=== PATIENT | female | born 1945 | race Caucasian/White ===

== ENCOUNTER 2024-12-25 19:20 | Inpatient (IN) | payer MEDICARE, OTHER ==
[~2024-12-25] VITALS: Ht 170.2 cm; Wt 81.6 kg
[2024-12-25] MEDS ORDERED: SEMA14TA PO (19:43)
[2024-12-25] MEDS ORDERED: CINA30TA6 PO (19:43)
[2024-12-25] MEDS ORDERED: METF-495 PO (19:43)
[2024-12-25] MEDS ORDERED: GABA-532 PO (19:43)
[2024-12-25] MEDS ORDERED: BENA40TA8 PO (19:43)
[2024-12-25] MEDS ORDERED: ATOR20TA PO (19:43)
[2024-12-25] MEDS ORDERED: GLIP10TA11 PO (19:43)
[2024-12-25] MEDS ORDERED: TRAZ-182 PO (19:43)
[2024-12-25] MEDS ORDERED: POTA-88 PO (19:43)
[2024-12-25] MEDS ORDERED: ONDA4TAB11 PO (19:43)
[2024-12-25] MEDS ORDERED: LORAZEPAM 2 MG/1 ML VIAL ONE (20:08)
[2024-12-25] MEDS: LORAZEPAM 2 MG/1 ML VIAL IV ONE (20:12)
[2024-12-25] MEDS ORDERED: INSULIN REGULAR, HUMAN 1000 UNIT/10 ML VIAL ONE (20:13)
[2024-12-25 20:15] LABS: BASOPHILS % (AUTO) 0.1 % (0.0-2.0); DIFFERENTIAL COMMENT 0; EOSINOPHILS % (AUTO) 0.1 % (0.0-7.0); HEMATOCRIT 31.8 % (31.2-41.9); LYMPHOCYTES # (AUTO) 0.8 K/uL (0.8-4.8); LYMPHOCYTES % (AUTO) 5.2 % (20.5-51.5); MEAN CORPUSCULAR HEMOGLOBIN 25.3 uug (24.7-32.8); MEAN CORPUSCULAR HGB CONC 32 g/dL (32.3-35.6); MEAN CORPUSCULAR VOLUME 80.3 fL (75.5-95.3); MONOCYTES # (AUTO) 0.9 K/uL (0.1-1.30); MONOCYTES % (AUTO) 5.4 % (0.0-11.0); NEUTROPHILS # (AUTO) 14.3 K/uL (1.8-8.9); NEUTROPHILS % (AUTO) 89.2 % (38.5-71.5); PLATELET COUNT (AUTO) 412 K/uL (179-408); RED BLOOD CELL COUNT(AUTO) 3.96 MIL/uL (3.63-4.92); RED CELL DISTRIBUTION WIDTH 15.5 % (12.3-17.7)
[2024-12-25 20:31] LABS: CALCIUM 10.5 mg/dL (8.5-10.1); CARBON DIOXIDE 20 mmol/L (21-32); CHLORIDE 97 mmol/L (98-107); CREATININE 1.3 mg/dL (0.6-1.3); POTASSIUM 4.5 mmol/L (3.5-5.1); SODIUM SERUM 133 mmol/L (136-145); UREA NITROGEN, BLOOD 55 mg/dL (7-18)
[2024-12-25 20:34] LABS: GLUCOSE 597 mg/dL (74-106)
[2024-12-25] MEDS: IV NS 1000 ML 1,000 ML IV ONE ×2 (20:38→21:08)
[2024-12-25] MEDS: INSULIN REGULAR, HUMAN 1000 UNIT/10 ML VIAL IV ONE ×2 (20:38→22:10)
[2024-12-25 20:45] LABS: ALANINE AMINOTRANSFERASE 16 U/L (14-59); ALBUMIN 2.1 g/dL (3.4-5.0); ALKALINE PHOSPHATASE 134 U/L (50-136); ASPARTATE AMINOTRANSFERASE 8 U/L (15-37); BILIRUBIN,TOTAL 0.8 mg/dL (0.2-1.0); NT-PRO BNP 814 pg/mL (0-125); TOTAL PROTEIN, SERUM 6.5 g/dL (6.4-8.2)
[2024-12-25 20:58] LABS: ACETONE, SERUM SMALL (NEGATIVE)
[2024-12-25 21:13] LABS: ABG BASE EXCESS -4.5 mmol/L (-2.0-3.0); ABG PCO2 34.6 mmHg (32.0-45.0); ABG PO2 78.6 mmHg (83.0-108.0); ABG SITE RIGHT RADIAL; ABG TOTAL HEMOGLOBIN 10.1 G/dL (12.0-16.0); AaDO2 95.5 mmHg; COHb 0.1 % (0.5-1.5); MetHb 0.2 % (0.0-1.5)
[2024-12-25 21:28] LABS: *BILIRUBIN,URIN NEGATIVE (NEGATIVE); *BLOOD, URINE 1+ (NEGATIVE); *CLARITY,URINE CLEAR (CLEAR); *COLOR,URINE YELLOW (YELLOW); *KETONES,URINE 2+ (NEGATIVE); *PROTEIN,URINE 1+ (NEGATIVE); *UROBILINOGEN,URINE 0.2 E.U./dl (NORMAL); LEUKOCYTE ESTERASE ,URINE NEGATIVE (NEGATIVE); NITRITE, URINE POSITIVE (NEGATIVE); UGLUCOSE 3+ (NEGATIVE)
[2024-12-25 22:57] LABS: BACTERIA,URINE MODERATE /HPF (NONE SEEN); MUCUS,URINE FEW /LPF (0-FEW); SQUAMOUS EPITHELIAL CELL,UR FEW /HPF (NONE SEEN); WBC,URINE 0-3 /HPF (0-3)
[2024-12-26] MEDS ORDERED: LORAZEPAM 2 MG/1 ML VIAL ONE ×3 (00:16→10:53)
[2024-12-26] MEDS: LORAZEPAM 2 MG/1 ML VIAL IV ONE ×3 (00:21→10:59)
[2024-12-26] MEDS: CEFTRIAXONE 1 G in IV DEXTROSE 5% 50 ML IV SCH (00:30)
[2024-12-26] MEDS ORDERED: MAGNESIUM HYDROXIDE 30 ML LIQUID UDC PO PRN (00:30)
[2024-12-26] MEDS ORDERED: ONDANSETRON 4 MG/2 ML VIAL IV PRN (00:30)
[2024-12-26] MEDS: INSULIN REGULAR, HUMAN 100 UNITS in IV NORMAL SALINE 100 ML IV ONE (00:47)
[2024-12-26 01:03] LABS: CALCIUM 9.6 mg/dL (8.5-10.1); CARBON DIOXIDE 23 mmol/L (21-32); CHLORIDE 103 mmol/L (98-107); CREATININE 1.2 mg/dL (0.6-1.3); POTASSIUM 3.8 mmol/L (3.5-5.1); SODIUM SERUM 136 mmol/L (136-145); UREA NITROGEN, BLOOD 49 mg/dL (7-18)
[2024-12-26 01:05] LABS: GLUCOSE 467 mg/dL (74-106)
[2024-12-26] MEDS ORDERED: VANCOMYCIN IV 200 ML ONE (01:32)
[2024-12-26] MEDS ORDERED: CEFTRIAXONE /D5W 50ML IVPB **ER PYXIS IV ONE (01:32)
[2024-12-26] MEDS: VANCOMYCIN IV 1,000 MG in IV DEXTROSE 5% 250 ML IV ONE (02:00)
[2024-12-26] MEDS ORDERED: INSULIN REGULAR, HUMAN 1000 UNIT/10 ML VIAL SQ PRN (06:30)
[2024-12-26] MEDS ORDERED: DEXTROSE 50% 50 ML DISP.SYRIN IV PRN ×2 (06:30→19:45)
[2024-12-26] MEDS: BLOOD SUGAR DIAGNOSTIC 1 EACH STRIP VI SCH ×2 (08:20→20:23)
[2024-12-26] MEDS ORDERED: CEFTRIAXONE 1 G in IV DEXTROSE 5% 50 ML IV SCH (09:00)
[2024-12-26] MEDS ORDERED: IV D5W-0.45% NS +20 KCL 1,000 ML IV ONE (11:07)
[2024-12-26] MEDS: IV D5W-0.45% NS +20 KCL 1,000 ML IV ONE (11:07)
[2024-12-26] MEDS: NITROFURANTOIN/NITROFURAN MAC 100 MG CAPSULE PO SCH (15:14)
[2024-12-26 15:16] VITALS: BP 118/65; TEMP 97.9; O2SAT 98
[2024-12-26] MEDS: IV NS 1000 ML 1,000 ML IV PRN (15:44)
[2024-12-26] MEDS: INSULIN REGULAR, HUMAN 300 UNITS/3 ML VIAL SQ PRN (18:12)
[2024-12-26] MEDS ORDERED: METF750T46 PO (19:18)
[2024-12-26] MEDS ORDERED: FURO20TA4 PO (19:19)
[2024-12-26 19:20] VITALS: BP 150/78; TEMP 97.8; O2SAT 100
[2024-12-26] MEDS: INSULIN REGULAR, HUMAN 1000 UNIT/10 ML VIAL SQ PRN (20:30)
[2024-12-26] MEDS: INSULIN GLARGINE,HUM 300 UNITS/3 ML CARTRIDGE SQ SCH (20:35)
[2024-12-26] MEDS: LORAZEPAM 2 MG/1 ML VIAL IV PRN (22:58)
[2024-12-26] MEDS ORDERED: AZTREONAM 1 G VIAL ONE (23:10)
[2024-12-26] MEDS: AZTREONAM 1 G in IV NORMAL SALINE 50 ML IV SCH (23:35)
[2024-12-27] MEDS ORDERED: DEXTROSE 50% 50 ML DISP.SYRIN IV PRN (00:30)
[2024-12-27 00:50] VITALS: BP 117/56; TEMP 97.3; O2SAT 97
[2024-12-27] MEDS: ACETAMINOPHEN 325 MG TABLET PO PRN (01:26)
[2024-12-27 02:58] LABS: *CLARITY,URINE CLEAR (CLEAR); *COLOR,URINE YELLOW (YELLOW); *KETONES,URINE TRACE (NEGATIVE); *PROTEIN,URINE 2+ (NEGATIVE); *UROBILINOGEN,URINE 0.2 E.U./dl (NORMAL); LEUKOCYTE ESTERASE ,URINE TRACE (NEGATIVE); NITRITE, URINE NEGATIVE (NEGATIVE); PH,URINE 5.5 (5.0-8.0)
[2024-12-27 03:14] LABS: *BILIRUBIN,URIN 1+ (NEGATIVE); *BLOOD, URINE TRACE (NEGATIVE); UGLUCOSE 3+ (NEGATIVE)
[2024-12-27 03:25] LABS: BACTERIA,URINE FEW /HPF (NONE SEEN); SQUAMOUS EPITHELIAL CELL,UR MODERATE /HPF (NONE SEEN); URIC ACID CRYSTALS,URINE MODERATE /HPF (NONE SEEN)
[2024-12-27] MEDS ORDERED: AZTREONAM 1 G VIAL ONE (04:03)
[2024-12-27 05:32] VITALS: BP 147/38; TEMP 98; O2SAT 97
[2024-12-27] MEDS: BLOOD SUGAR DIAGNOSTIC 1 EACH STRIP VI SCH (06:49)
[2024-12-27 07:27] VITALS: BP 129/51; TEMP 98.4; O2SAT 99
[2024-12-27] MEDS ORDERED: AZTREONAM 1 G in IV NORMAL SALINE 50 ML IV SCH (08:00)
[2024-12-27] MEDS ORDERED: MORPHINE SULFATE 2 MG/1 ML DISP.SYRIN IV PRN (11:15)
[2024-12-27] MEDS: MORPHINE SULFATE 2 MG/1 ML DISP.SYRIN IV PRN (12:18)
[2024-12-27] MEDS: AZTREONAM 1 G in IV NORMAL SALINE 50 ML IV SCH (14:11)
[2024-12-27] MEDS ORDERED: LORAZEPAM 2 MG/1 ML VIAL IV PRN (14:15)
[2024-12-27 14:59] VITALS: BP 161/89; TEMP 98.7; O2SAT 96
[2024-12-27] MEDS: LORAZEPAM 0.5 MG TABLET PO PRN (15:55)
[2024-12-27 16:22] LABS: BASOPHILS % (AUTO) 0.3 % (0.0-2.0); EOSINOPHILS % (AUTO) 0.3 % (0.0-7.0); HEMATOCRIT 30.5 % (31.2-41.9); HEMOGLOBIN 9.9 g/dL (10.9-14.3); LYMPHOCYTES # (AUTO) 0.9 K/uL (0.8-4.8); LYMPHOCYTES % (AUTO) 7.5 % (20.5-51.5); MEAN CORPUSCULAR HEMOGLOBIN 25.9 uug (24.7-32.8); MEAN CORPUSCULAR HGB CONC 33 g/dL (32.3-35.6); MEAN CORPUSCULAR VOLUME 79.7 fL (75.5-95.3); MONOCYTES # (AUTO) 0.6 K/uL (0.1-1.30); MONOCYTES % (AUTO) 4.9 % (0.0-11.0); NEUTROPHILS # (AUTO) 10.1 K/uL (1.8-8.9); PLATELET COUNT (AUTO) 366 K/uL (179-408); RED BLOOD CELL COUNT(AUTO) 3.83 MIL/uL (3.63-4.92); RED CELL DISTRIBUTION WIDTH 15.6 % (12.3-17.7); WHITE BLOOD COUNT (AUTO) 11.6 K/uL (3.8-11.8)
[2024-12-27 16:29] LABS: DIFFERENTIAL COMMENT 1
[2024-12-27 16:36] LABS: CALCIUM 9.8 mg/dL (8.5-10.1); CARBON DIOXIDE 23 mmol/L (21-32); CHLORIDE 109 mmol/L (98-107); CREATININE 0.6 mg/dL (0.6-1.3); GLUCOSE 311 mg/dL (74-106); MAGNESIUM 1.9 mg/dL (1.8-2.4); PHOSPHOROUS 1.7 mg/dL (2.5-4.9); SODIUM SERUM 143 mmol/L (136-145); UREA NITROGEN, BLOOD 21 mg/dL (7-18)
[2024-12-27 16:50] LABS: THYROID STIMULATING HORMONE 1.4 mIU/mL (0.358-3.740)
[2024-12-27] MEDS: INSULIN REGULAR, HUMAN 1000 UNIT/10 ML VIAL SQ PRN (17:58)
[2024-12-27] MEDS: ARGININE/GLUTAMINE/CALCIUM BMB 1 EACH POWD.PACK PO SCH (17:59)
[2024-12-27] MEDS: SODIUM HYPOCHLORITE 0.125% (QUARTER STRENGTH) 473 ML BOTTLE TP SCH (18:11)
[2024-12-27 19:49] VITALS: BP 161/71; TEMP 98.2; O2SAT 99
[2024-12-27] MEDS: INSULIN GLARGINE,HUM 300 UNITS/3 ML CARTRIDGE SQ SCH (20:56)
[2024-12-27] MEDS: INSULIN REGULAR, HUMAN 300 UNITS/3 ML VIAL SQ PRN (20:58)
[2024-12-28] MEDS: TRAZODONE 50 MG TABLET PO PRN (01:33)
[2024-12-28 06:03] VITALS: BP 143/69; TEMP 97.9; O2SAT 98
[2024-12-28 07:18] LABS: BASOPHILS % (AUTO) 0.2 % (0.0-2.0); EOSINOPHILS # (AUTO) 0.1 K/uL (0.0-0.7); HEMATOCRIT 28.6 % (31.2-41.9); HEMOGLOBIN 9.6 g/dL (10.9-14.3); LYMPHOCYTES % (AUTO) 9.8 % (20.5-51.5); MEAN CORPUSCULAR HEMOGLOBIN 26.5 uug (24.7-32.8); MEAN CORPUSCULAR HGB CONC 34 g/dL (32.3-35.6); MEAN CORPUSCULAR VOLUME 79.3 fL (75.5-95.3); MONOCYTES # (AUTO) 0.5 K/uL (0.1-1.30); MONOCYTES % (AUTO) 5.5 % (0.0-11.0); NEUTROPHILS # (AUTO) 8.1 K/uL (1.8-8.9); NEUTROPHILS % (AUTO) 83.5 % (38.5-71.5); PLATELET COUNT (AUTO) 369 K/uL (179-408); RED CELL DISTRIBUTION WIDTH 15.4 % (12.3-17.7); WHITE BLOOD COUNT (AUTO) 9.7 K/uL (3.8-11.8)
[2024-12-28 07:36] LABS: DIFFERENTIAL COMMENT 1
[2024-12-28 07:48] LABS: ALANINE AMINOTRANSFERASE 75 U/L (14-59); ALBUMIN 1.7 g/dL (3.4-5.0); ALKALINE PHOSPHATASE 510 U/L (50-136); ASPARTATE AMINOTRANSFERASE 131 U/L (15-37); BILIRUBIN,TOTAL 0.4 mg/dL (0.2-1.0); CALCIUM 9.5 mg/dL (8.5-10.1); CARBON DIOXIDE 26 mmol/L (21-32); CHLORIDE 111 mmol/L (98-107); CHOLESTEROL 83 mg/dL (<200); CREATININE 0.4 mg/dL (0.6-1.3); GLUCOSE 159 mg/dL (74-106); HDL CHOLESTEROL 27 mg/dL (40-60); MAGNESIUM 1.7 mg/dL (1.8-2.4); PHOSPHOROUS 1.6 mg/dL (2.5-4.9); POTASSIUM 3.2 mmol/L (3.5-5.1); SODIUM SERUM 147 mmol/L (136-145); TOTAL PROTEIN, SERUM 5.8 g/dL (6.4-8.2); TRIGLYCERIDES 74 MG/DL (30-150); UREA NITROGEN, BLOOD 13 mg/dL (7-18)
[2024-12-28] MEDS: GLUCERNA SHAKE 237 ML CAN PO SCH (09:00)
[2024-12-28] MEDS: POTASSIUM PHOSPHATE MM 15 MMOL in IV NORMAL SALINE 250 ML IV ONE (09:47)
[2024-12-28] MEDS: MAGNESIUM SULFATE/D5W 100 ML IV SCH (09:59)
[2024-12-28] MEDS: ZINC SULFATE 220 MG CAPSULE PO SCH (10:00)
[2024-12-28] MEDS: METOPROLOL TARTRATE 25 MG TABLET PO SCH (10:00)
[2024-12-28] MEDS: ASCORBIC ACID 500 MG TABLET PO SCH (10:00)
[2024-12-28 11:17] VITALS: BP 132/74; TEMP 97.5; O2SAT 98
[2024-12-28] MEDS: PROTEIN SUPPLEMENT (PROSTAT) 30 ML LIQUID PO SCH (12:10)
[2024-12-28 15:51] VITALS: BP 140/70; TEMP 98.1; O2SAT 97
[2024-12-28 19:30] VITALS: BP 185/92; TEMP 99; O2SAT 100
[2024-12-28] MEDS ORDERED: hydrALAZINE HCL 25 MG TABLET PO PRN (21:00)
[2024-12-29 06:31] VITALS: BP 144/75; TEMP 98.7; O2SAT 100
[2024-12-29 07:25] LABS: BASOPHILS % (AUTO) 0.2 % (0.0-2.0); EOSINOPHILS # (AUTO) 0.1 K/uL (0.0-0.7); EOSINOPHILS % (AUTO) 0.6 % (0.0-7.0); HEMATOCRIT 30.1 % (31.2-41.9); HEMOGLOBIN 9.8 g/dL (10.9-14.3); LYMPHOCYTES # (AUTO) 1.1 K/uL (0.8-4.8); MEAN CORPUSCULAR HGB CONC 33 g/dL (32.3-35.6); MEAN CORPUSCULAR VOLUME 79.4 fL (75.5-95.3); MONOCYTES # (AUTO) 0.6 K/uL (0.1-1.30); MONOCYTES % (AUTO) 5.5 % (0.0-11.0); NEUTROPHILS # (AUTO) 8.8 K/uL (1.8-8.9); NEUTROPHILS % (AUTO) 83.7 % (38.5-71.5); PLATELET COUNT (AUTO) 352 K/uL (179-408); RED BLOOD CELL COUNT(AUTO) 3.79 MIL/uL (3.63-4.92); RED CELL DISTRIBUTION WIDTH 15.6 % (12.3-17.7); WHITE BLOOD COUNT (AUTO) 10.5 K/uL (3.8-11.8)
[2024-12-29 07:26] LABS: DIFFERENTIAL COMMENT 1
[2024-12-29 07:57] LABS: ALANINE AMINOTRANSFERASE 100 U/L (14-59); ALBUMIN 1.7 g/dL (3.4-5.0); ALKALINE PHOSPHATASE 557 U/L (50-136); ASPARTATE AMINOTRANSFERASE 98 U/L (15-37); BILIRUBIN,TOTAL 0.4 mg/dL (0.2-1.0); CALCIUM 10.2 mg/dL (8.5-10.1); CARBON DIOXIDE 28 mmol/L (21-32); CHLORIDE 112 mmol/L (98-107); CREATININE 0.8 mg/dL (0.6-1.3); GLUCOSE 236 mg/dL (74-106); MAGNESIUM 2.1 mg/dL (1.8-2.4); PHOSPHOROUS 1.9 mg/dL (2.5-4.9); SODIUM SERUM 148 mmol/L (136-145); UREA NITROGEN, BLOOD 14 mg/dL (7-18)
[2024-12-29 10:58] VITALS: BP 142/61; TEMP 98; O2SAT 94
[2024-12-29 16:18] VITALS: BP 131/56; TEMP 98.4; O2SAT 96
[2024-12-29] MEDS: NEUTRA PHOS PACKET PO ONE (16:53)
[2024-12-29 19:14] VITALS: BP 182/83; TEMP 97.4; O2SAT 98
[2024-12-29] MEDS: INSULIN GLARGINE,HUM 300 UNITS/3 ML CARTRIDGE SQ SCH (20:31)
[2024-12-30 04:34] VITALS: BP 135/64; TEMP 98.3; O2SAT 97
[2024-12-30 04:39] VITALS: BP 135/64; TEMP 98.3; O2SAT 97
[2024-12-30 07:36] LABS: CALCIUM 9.8 mg/dL (8.5-10.1); CARBON DIOXIDE 28 mmol/L (21-32); CHLORIDE 103 mmol/L (98-107); GLUCOSE 347 mg/dL (74-106); PHOSPHOROUS 2.5 mg/dL (2.5-4.9); SODIUM SERUM 135 mmol/L (136-145); UREA NITROGEN, BLOOD 27 mg/dL (7-18)
[2024-12-30 08:00] VITALS: BP 112/73; TEMP 97.2; O2SAT 99
[2024-12-30 12:35] VITALS: BP 143/50; TEMP 97.2; O2SAT 99
[2024-12-30 19:19] VITALS: BP 170/80; TEMP 98.1; O2SAT 100
[2024-12-31 05:15] VITALS: BP 161/57; TEMP 99.2; O2SAT 100
[2024-12-31 06:29] LABS: BASOPHILS % (AUTO) 0.2 % (0.0-2.0); EOSINOPHILS # (AUTO) 0.2 K/uL (0.0-0.7); EOSINOPHILS % (AUTO) 1.3 % (0.0-7.0); HEMOGLOBIN 9.5 g/dL (10.9-14.3); LYMPHOCYTES # (AUTO) 1.4 K/uL (0.8-4.8); LYMPHOCYTES % (AUTO) 11.3 % (20.5-51.5); MEAN CORPUSCULAR HGB CONC 33 g/dL (32.3-35.6); MEAN CORPUSCULAR VOLUME 79.1 fL (75.5-95.3); MONOCYTES # (AUTO) 0.6 K/uL (0.1-1.30); MONOCYTES % (AUTO) 5.1 % (0.0-11.0); NEUTROPHILS # (AUTO) 10.5 K/uL (1.8-8.9); NEUTROPHILS % (AUTO) 82.1 % (38.5-71.5); PLATELET COUNT (AUTO) 333 K/uL (179-408); RED BLOOD CELL COUNT(AUTO) 3.67 MIL/uL (3.63-4.92); RED CELL DISTRIBUTION WIDTH 15.5 % (12.3-17.7); WHITE BLOOD COUNT (AUTO) 12.8 K/uL (3.8-11.8)
[2024-12-31 06:46] LABS: CALCIUM 9.4 mg/dL (8.5-10.1); CARBON DIOXIDE 27 mmol/L (21-32); CHLORIDE 101 mmol/L (98-107); CREATININE 0.7 mg/dL (0.6-1.3); GLUCOSE 338 mg/dL (74-106); MAGNESIUM 1.7 mg/dL (1.8-2.4); PHOSPHOROUS 2.1 mg/dL (2.5-4.9); POTASSIUM 4.7 mmol/L (3.5-5.1); SODIUM SERUM 134 mmol/L (136-145); UREA NITROGEN, BLOOD 30 mg/dL (7-18)
[2024-12-31 06:53] LABS: DIFFERENTIAL COMMENT 1
[2024-12-31] MEDS: MAGNESIUM OXIDE 400 MG TABLET PO ONE (11:00)
[2024-12-31 11:17] LABS: BAND % (MANUAL) 2 % (0-10); LYMPHOCYTES % (MANUAL) 15 % (20-40); MONOCYTES % (MANUAL) 7 % (2-10); NEUTROPHILS % (MANUAL) 75 % (42-75)
[2024-12-31 11:18] LABS: ANISOCYTOSIS 1+; MYELOCYTES % 1 % (0-0); PLATELET ESTIMATE ADEQUATE
[2024-12-31 12:00] VITALS: BP 138/58; TEMP 98.1; O2SAT 98
[2024-12-31] MEDS: ACIDOPHILUS/BULGARICUS CHEW TAB PO SCH (12:01)
[2024-12-31 15:40] VITALS: BP 139/60; TEMP 98.3; O2SAT 100
[2024-12-31] MEDS: NEUTRA PHOS PACKET PO ONE (16:43)
[2024-12-31 19:49] VITALS: BP 149/63; TEMP 99; O2SAT 100
[2024-12-31] MEDS: INSULIN GLARGINE,HUM 300 UNITS/3 ML CARTRIDGE SQ SCH (21:14)
[2025-01-01 04:30] VITALS: BP 145/71; TEMP 97.7; O2SAT 100
[2025-01-01 08:00] VITALS: BP 147/63; TEMP 98.8; O2SAT 91
[2025-01-01 08:39] LABS: BASOPHILS % (AUTO) 0.3 % (0.0-2.0); EOSINOPHILS # (AUTO) 0.2 K/uL (0.0-0.7); EOSINOPHILS % (AUTO) 1.2 % (0.0-7.0); HEMATOCRIT 29.8 % (31.2-41.9); HEMOGLOBIN 9.6 g/dL (10.9-14.3); LYMPHOCYTES # (AUTO) 1.3 K/uL (0.8-4.8); LYMPHOCYTES % (AUTO) 10.2 % (20.5-51.5); MEAN CORPUSCULAR HEMOGLOBIN 25.8 uug (24.7-32.8); MEAN CORPUSCULAR HGB CONC 32 g/dL (32.3-35.6); MEAN CORPUSCULAR VOLUME 79.7 fL (75.5-95.3); MONOCYTES # (AUTO) 0.8 K/uL (0.1-1.30); MONOCYTES % (AUTO) 6.3 % (0.0-11.0); NEUTROPHILS # (AUTO) 10.7 K/uL (1.8-8.9); PLATELET COUNT (AUTO) 333 K/uL (179-408); RED BLOOD CELL COUNT(AUTO) 3.73 MIL/uL (3.63-4.92); RED CELL DISTRIBUTION WIDTH 15.6 % (12.3-17.7)
[2025-01-01 08:46] LABS: DIFFERENTIAL COMMENT 1
[2025-01-01 10:30] LABS: ALANINE AMINOTRANSFERASE 47 U/L (14-59); ALKALINE PHOSPHATASE 269 U/L (50-136); ASPARTATE AMINOTRANSFERASE 38 U/L (15-37); BILIRUBIN,DIRECT 0.1 mg/dL (0.0-0.2); BILIRUBIN,TOTAL 0.2 mg/dL (0.2-1.0); CALCIUM 9.4 mg/dL (8.5-10.1); CARBON DIOXIDE 28 mmol/L (21-32); CHLORIDE 103 mmol/L (98-107); CREATININE 0.6 mg/dL (0.6-1.3); GLUCOSE 214 mg/dL (74-106); MAGNESIUM 1.8 mg/dL (1.8-2.4); PHOSPHOROUS 2.6 mg/dL (2.5-4.9); POTASSIUM 4.5 mmol/L (3.5-5.1); SODIUM SERUM 137 mmol/L (136-145); TOTAL PROTEIN, SERUM 5.5 g/dL (6.4-8.2); UREA NITROGEN, BLOOD 19 mg/dL (7-18)
[2025-01-01 10:32] LABS: ALBUMIN 1.3 g/dL (3.4-5.0)
[2025-01-01 12:00] VITALS: BP 139/54; TEMP 98.6; O2SAT 99
[2025-01-01] MEDS ORDERED: CRAN450T9 PO (15:51)
[2025-01-01] MEDS ORDERED: ASCO500T21 PO (15:51)
[2025-01-01] MEDS ORDERED: GLIP10TA11 PO (15:51)
[2025-01-01] MEDS ORDERED: ACID1TAB4 PO (15:51)
[2025-01-01] MEDS ORDERED: NUT.237L36 PO (15:51)
[2025-01-01] MEDS ORDERED: ZINC1CAP3 PO (15:51)
[2025-01-01 16:00] VITALS: BP 142/60; TEMP 99.7; O2SAT 98
== END 2025-01-01 18:35 | disposition home health service (06) | DRG 871 ==
LOC: ER 19:20 → TELE3 12-26 14:01 → MEDSURG3 12-27 08:29
PROVIDERS: ADMIT Nurse Practitioner Acute Care
DX: A41.9 Sepsis, unspecified organism (principal); E43 Unspecified severe protein-calorie malnutrition; G92.8 Other toxic encephalopathy; N17.0 Acute kidney failure with tubular necrosis; N39.0 Urinary tract infection, site not specified; D68.59 Other primary thrombophilia; I69.354 Hemiplegia and hemiparesis following cerebral infarction affecting left non-dominant side; I96 Gangrene, not elsewhere classified; F01.52 Vascular dementia, unspecified severity, with psychotic disturbance; E11.65 Type 2 diabetes mellitus with hyperglycemia; Z53.20 Procedure and treatment not carried out because of patient's decision for unspecified reasons; L89.150 Pressure ulcer of sacral region, unstageable; L89.320 Pressure ulcer of left buttock, unstageable; L89.310 Pressure ulcer of right buttock, unstageable; L89.890 Pressure ulcer of other site, unstageable; L89.892 Pressure ulcer of other site, stage 2; L89.620 Pressure ulcer of left heel, unstageable; Z79.4 Long term (current) use of insulin; E21.3 Hyperparathyroidism, unspecified; L89.610 Pressure ulcer of right heel, unstageable; E86.0 Dehydration; E66.9 Obesity, unspecified; D64.9 Anemia, unspecified; I10 Essential (primary) hypertension; Z68.27 Body mass index [BMI] 27.0-27.9, adult; Z71.3 Dietary counseling and surveillance; Z79.84 Long term (current) use of oral hypoglycemic drugs; Z74.09 Other reduced mobility; Z88.1 Allergy status to other antibiotic agents; Z88.0 Allergy status to penicillin; Z88.2 Allergy status to sulfonamides; Z88.8 Allergy status to other drugs, medicaments and biological substances; Z74.01 Bed confinement status
CPT/HCPCS: 36415; 36600; 70450; 71045; 82803; 83605; 83735; 83921; 84100; 84443; 84484; 85025; 85610; 87040; 87086; A4663; A6213; G0378; J0696; J1815; J2060; J2270; J3370; J3475; J3490; J7040